=== PATIENT | male | born 1955 | race Caucasian/White ===

== ENCOUNTER → 2021-01-07 | Outpatient (CLI) | payer OTHER | END | disposition home or self-care (01) | LOC: SHCH 08:20 | PROVIDERS: ATTEND Internal Medicine Cardiovascular Disease | DX: I10 Essential (primary) hypertension (principal); Z82.49 Family history of ischemic heart disease and other diseases of the circulatory system | CPT/HCPCS: 93306; 93356 ==

== ENCOUNTER 2025-02-10 08:21 | Emergency (ER) | payer MEDICARE, OTHER ==
[~2025-02-10] VITALS: Ht 177.8 cm; Wt 99.8 kg
--- NOTE | 2025-02-10 08:45 | NUR ---
REMOVED 21 BEE STINGERS FROM SCALP, FOREHEAD, EARS, FACE, NECK AND ARMS, PER PT SEVERAL STINGERS REMOVED EN ROUTE TO ER FROM ARMS
--- NOTE | 2025-02-10 08:45 | ERN ---
General Chief Complaint: Allergic Reaction Stated Complaint: BEE STINGS Time Seen by MD: 08:32 Source: patient History of Present Illness Initial Comments Mr. Rivera is a 69-year-old male, came to the ER after bee stings 15 minutes ago. Patient states that he was moving wishes with a Dozer with the bees stinged him. Patient has bee stings on his face neck scalp and arms, around 20 in total. Patient denies pain, itching, dizziness, shortness of breath. Allergies: Coded Allergies: No Known Drug Allergies (Unverified Allergy, Unknown, 02/10/25) Home Meds Active Scripts Epinephrine (Epinephrine) 0.3 Mg/0.3 Ml Auto.injct, 1 SYR IM ONCE for 1 Day, #0.6 ML 0 Refills Prov:RANULFO TSAI MD 02/10/25 Prednisone (Prednisone) 20 Mg Tablet, 1 TAB PO BID for 3 Days, #6 TAB 0 Refills Prov:RANULFO TSAI MD 02/10/25 Past Medical History Past Medical History: Hypertension Past Surgical History: Tonsillectomy ROS Dictation CONSTITUTIONAL: No chills, no fever, no weakness, no diaphoresis, no malaise. HEAD/FACE: No signs of trauma. Several bee stings on face, scalp, neck, and arms EENT: No eye pain, no blurred vision, no tearing, no double vision, no ear pain, no ear discharge, no nose pain, no nasal congestion, no throat pain, no throat swelling, no mouth pain. RESPIRATORY: No cough, no SOB, no orthopnea, no PND, no wheezing. CARDIOVASCULAR: No chest pain, no edema, no palpitations, no syncope. GASTROINTESTINAL/ABDOMINAL: No abdominal pain, no constipation, no diarrhea, no nausea, no vomiting. GENITOURINARY: No abnormal discharge, no dysuria, no frequent urination, no hematuria. No complaints of pain in the genitals. MUSCULOSKELETAL: No back pain, no gout, no joint pain, no joint swelling, no muscle pain, no muscle stiffness, no neck pain. INTEGUMENTARY: No change in color, no change in hair/nails, no dryness, no lesion, no lumps, no rash. NEUROLOGICAL/PSYCH: No anxiety, not depressed, no emotional problem, no headache, no numbness, no pre-existing deficit, no history of seizures, no tremors, no weakness. HEMATOLOGIC/LYMPHATIC: Not anemic, no history of blood clots, no apparent bleeding, no bruising, glands not swollen. All Systems Negative, Except as Noted. Physical Exam Physical Exam Dictation VITAL SIGNS: Reviewed. GENERAL APPEARANCE: Alert, oriented x3 HEAD AND FACE: Non-traumatic. Several erythematous bee stings on face, scalp, neck, and arms. EYES: PERRL, pink conjunctivas, eyelid no trauma, anterior chamber clear. EARS: Pinnas intact and no signs of trauma or erythema. Ear canals clear and no discharge. TMs no erythema. NOSE: No discharge, no bleeding. OROPHARYNX: Mouth normal, teeth no caries, tongue pink. Pharynx clear, no erythema. Tonsils no exudates, no abscesses noted. Mucous membrane moist. NECK: Supple, non-tender, no thyromegaly, no masses, no JVD, no bruits. BREAST: Deferred. CHEST: No tenderness, no crepitus, no paradoxical movement, no retractions. LUNGS: Clear, well-ventilated, symmetric, no rales, no wheezing, no rhonchi, no stridor, good breath sounds bilaterally. HEART: Regular rate, regular rhythm, no murmur, no gallops. VASCULAR: No peripheral edema. ABDOMEN: Soft, positive bowel sounds, nondistended, no guarding, nontender, no rebound, no masses no hepatomegaly, no splenomegaly, no Trinidad's sign, no hernias. RECTAL: Deferred. GENITAL: Deferred. NEUROLOGICAL: Normal speech, gross motor function intact, gross sensory function intact. MUSCULOSKELETAL: Neck nontender, full range of motion, back nontender, full range of motion. EXTREMITIES: Nontender, full range of motion. Several erythematous bee stings. SKIN: Color pink, dry, no turgor, no rash, no lacerations, no abrasions, no c ontusions. LYMPHATICS: Deferred. MDM Chief complaint: Pt presented after bee attack this morning on face, scalp, neck, and arms. PMH: HTN otherwise unremarkable Vitals: Vitals were stable on admission and remained stable through out. POA BP: 153/81, RI: 107, RR: 18, Spo2: 97% Physical Exam: Approximately around 20 bee stings were noted on face, scalp, neck, and arms. Erythematous, no swelling, no SOB. ROS: Patient has no itching, pain, and SOB. Labs: Patient did not meet criteria for testing. Imaging: Patient did not meet criteria for testing. Differential: Bee sting allergic reaction, anaphylaxis. Assessment and plan: Patient vitals were stable on admission and remained stable. No wheezing noted, BP was normal. 20 bee stingers were removed. Patient was prescribed 40mg of Methylprednisolone IV, 25 mg Diphenhydramine IV, and 1 litre of IV fluids. However patient denied the medication and insisted on going home as he feels better. Patient was in observation for one hour and will be discharged home with PO Prednisone 20 BID for 3 days and a Epinephrine 0.3mg auto injector for use in case of anaphylaxis. ED Course Orders Procedure Category Date Status Time Lactated Ringers PHA 02/10/25 Complete 1000ml (Lactated 09:00 Methylprednisolone PHA 02/10/25 Complete Succ 40mg (Solu-Medro 09:00 Diphenhydramine Hcl PHA 02/10/25 Complete (Benadryl Inj) 09:00 Current Medications Medications (Trade) Dose Ordered Sig/Ephraim Route PRN Reason Start Time Stop Time Status Last Admin Dose Admin Diphenhydramine HCl (BENAdryl INJ) 25 mg ONCE ONCE IV 02/10/25 09:00 02/10/25 09:01 DC Lactated Ringer's 1,000 ml @ 125 mls/hr Q8H IV 02/10/25 09:00 02/10/25 10:05 DC Methylprednisolone Sodium Succinate (Solu-medROL 40MG) 40 mg ONCE ONCE IVP 02/10/25 09:00 02/10/25 09:01 DC Vital Signs Date Time Temp Pulse Resp B/P (MAP) Pulse Ox O2 Delivery O2 Flow Rate FiO2 02/10/25 09:58 98.1 84 18 160/90 96 Room Air* 0 21 02/10/25 08:43 104 18 155/92 97 Room Air* 0 21 02/10/25 08:22 98.8 107 18 153/81 97 Room Air DX & DISP Disposition: Discharge Departure Impression: Primary Impression: Bee sting reaction Condition: Stable Scripts Epinephrine (Epinephrine) 0.3 Mg/0.3 Ml Auto.injct 1 SYR IM ONCE for 1 Day, #0.6 ML 0 Refills Prov: POLAMARASETTY,HARSHAVARDHA MD 02/10/25 Prednisone (Prednisone) 20 Mg Tablet 1 TAB PO BID for 3 Days, #6 TAB 0 Refills Prov: RANULFO TSAI MD 02/10/25 Additional Instructions: Your vitals are stable. Take Prednisone for 3 days and Benadryl for itching. Use the Epi pen in case of a severe allergic reaction. Return to ER for any worsening symptoms or as needed. Referrals: ASHU NATION MD (PCP) I performed a substantive portion of the visit. I have reviewed and personally made and approve the management plan that is documented in the notes by myself with JS/resident. I acknowledged full responsibility for the patient's management plan. RANULFO TSAI MD Feb 10, 2025 08:45 CHRIST VEGA DO Feb 11, 2025 08:30
[2025-02-10] MEDS: LACTATED RINGERS 1000ML 1,000 ML IV SCH (09:00)
--- NOTE | 2025-02-10 09:00 | NUR ---
PT REFUSED IV MEDS MADE AWARE
[2025-02-10] MEDS: Solu-medROL 40MG VIAL IVP ONE (09:07)
[2025-02-10] MEDS ORDERED: EPIN0.3P19 IM (09:26)
[2025-02-10] MEDS ORDERED: PRED20TA3 PO (09:26)
[2025-02-10 09:58] VITALS: BP 160/90; PULSE 84; RESP 18; TEMP 98.1; O2SAT 96
== END 2025-02-10 10:05 | disposition home or self-care (01) ==
LOC: EDH 08:21
DX: T63.441A Toxic effect of venom of bees, accidental (unintentional), initial encounter (principal); I10 Essential (primary) hypertension; Z79.52 Long term (current) use of systemic steroids; Z90.89 Acquired absence of other organs; Y92.89 Other specified places as the place of occurrence of the external cause
CPT/HCPCS: 99283; J1200; J2919